=== PATIENT | male | born 1985 | race Caucasian/White ===

== ENCOUNTER 2022-08-19 16:27 | Emergency (ER) | payer BC, MEDICAID, SELFPAY ==
--- NOTE | 2022-08-19 16:34 | ED.EAR ---
HPI - Ear Problem General Chief complaint: Unspecified Stated complaint: Pain in ear and unable to move left side of face Time Seen by Provider: 08/19/22 16:35 Source: patient Mode of arrival: ambulatory Limitations: no limitations History of Present Illness HPI Narrative: Joe is a 37-year-old male patient presenting to the clinic today with complaints of pain in his left ear, headache, left-sided blurry vision, and unable to move the left side of his face. He reports symptoms began this morning when he woke up. States he went to work today and has come here after work. He denies any change in his symptoms since this morning. Related Data Allergies Allergy/AdvReac Type Severity Reaction Status Date / Time No Known Allergies Allergy Verified 08/19/22 16:34 Review of Systems Review of Systems: Pertinent positives per HPI. Patient denies any fever, chills, rash, dizziness, cough, runny nose, sore throat, shortness of breath, chest pain, palpitations, nausea, vomiting, diarrhea, constipation, abdominal pain, or any urinary issues. PMFSH Comments At the time of my signature, I reviewed and agree with the nursing past medical, surgical, social, and family history. There is no relevant family history pertinent to the patient complaint. Exam Narrative: General: Well-developed, well nourished, in no apparent distress Head: Normocephalic, atraumatic, left-sided facial droop, unable to wrinkle the left side of his forehead, smile asymmetric Eyes: Pupils equally round and reactive to light bilaterally, EOM intact, sclera and conjunctive clear, no discharge, lids normal Ears: Right TM intact and clear, left TM intact, congested, with mild redness, ear canals clear, no drainage, grossly hearing normal. Nose: Nares patent, no discharge, no inflammation, no sinus tenderness. Mouth: Oropharynx without lesions or masses, good dentition, MMM. Tongue midline, even rise and fall of uvula Neck: Supple, trachea midline, no enlargement of anterior or posterior cervical nodes, no thyroid masses or goiter palpable. Cardio: Regular rate and rhythm, s1 and s2 normal, no murmur appreciated. Resp: Clear to auscultation bilaterally anteriorly and posteriorly, no rhonchi, rales, wheezing or rubs Musculoskeletal: No deformity, non-tender to palpation, grossly normal range of motion, muscle strength strong and equal, peripheral pulse strong, no edema, no cyanosis, normal gait and station Neuro: Alert and oriented x4 with normal speech, cranial nerves I- and VIII-XII intact, muscle strength 5 out of 5, strong bilateral hand grasps, patellar reflexes 2+ bilaterally, negative Romberg test Course Course Emergency Course: Portions of this record may have been created with voice recognition software. Level of Care: Express Care Visit Vital Signs Vital signs: Vital signs reviewed Medical Decision Making MDM Narrative Medical decision making narrative: At the time of visit patient is resting on the exam table. Patient is having left-sided facial paralysis-unable to wrinkle left side forehead, tightly close left eye, and has asymmetric smile. No other focal deficits at this time. Also reporting headache and blurry vision in the left eye. 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 Recommend transfer to the ED to rule out CVA. Contacted Yesica-physician's insurance assistant at [facility] and report was given for continuity of care. Will send patient to the ED as a passenger of private car Differential Diagnosis Differential Diagnosis: CVA, De La Fuente's palsy Discharge Plan Discharge Clinical Impression: Facial paralysis on left side, Headache, Blurred vision, left eye Patient Disposition: Acute Care Hospital Condition: Stable Follow-up/Referrals: UNKNOWN,DOCTOR [Primary Care Provider] - Time of Disposition: 16:55 Quality NIHSS Nursing Documentation ED NIHSS nursing documentation: reviewed/agree
[2022-08-19 16:36] VITALS: BP 137/92; PULSE 72; RESP 16; TEMP 36.7; O2SAT 99
== END 2022-08-19 16:56 | disposition short-term general hospital (02) ==
PROVIDERS: Emergency Provider Nurse Practitioner Family
DX: R29.810 Facial weakness (principal); R51.9 Headache, unspecified; H53.8 Other visual disturbances
CPT/HCPCS: 99212; G0463

== ENCOUNTER 2022-08-19 17:17 | Emergency (ER) | payer BC, MEDICAID, SELFPAY ==
[2022-08-19] VITALS (12 sets, daily range): BP systolic 122–136; BP diastolic 79–98; PULSE 54–78; RESP 14–18; TEMP 36.6; O2SAT 98–100
--- NOTE | ~2022-08-19 | CT_ITS ---
EXAMINATION: CT brain wo con DATE: 08/19/2022 17:42 INDICATION: L sided facial droop onset 0530 . TECHNIQUE: Computed tomography (CT) of the head was performed without intravenous contrast. The mA wa s adjusted according to patient size. Iterative reconstruction technique was employed. The dose-lengt h product was 605.33 mGy-cm. COMPARISON: None. FINDINGS: No acute intracranial hemorrhage or extra-axial fluid collection. No hydrocephalus, mass, or herniation. No acute ischemic infarct. Unremarkable dural venous sinus attenuation. No acute osseous abnormality. Mild ethmoid mucosal thickening, the remaining aerated spaces are clear. IMPRESSION: No acute intracranial process. Reviewed, dictated and finalized at location K.
--- NOTE | 2022-08-19 18:39 | ED.GENADULT ---
HPI - General Adult General Chief complaint: Unspecified <NORAH Dumont Last Filed: 08/20/22 00:38> Stated complaint: facial droop <NORAH Dumont Last Filed: 08/20/22 00:38> Time Seen by Provider: 08/19/22 18:01 <NORAH Dumont Last Filed: 08/20/22 00:38> Source: patient and old records reviewed <NORAH Dumont Last Filed: 08/20/22 00:38> Mode of arrival: ambulatory <NORAH Dumont Last Filed: 08/20/22 00:38> Limitations: no limitations <NORAH Dumont Last Filed: 08/20/22 00:38> History of Present Illness HPI narrative: Patient is a 37-year-old male who presents to the ED with reports of paralysis to the left side of his face. Patient reports he woke up around 5:30 AM this morning with pain in his left ear, pain in his left eye, unable to close his left eye, unable to move the left side of his face. He denies any vision changes, ear drainage, headache, weakness of arm or leg, numbness of arm or leg, fevers. Patient went to work and then proceeded to go to urgent care where he was then referred here for further evaluation. Patient states he has otherwise been in his normal state of health the last few days. <NOARH Dumont Last Filed: 08/20/22 00:38> Related Data Allergies/adverse reactions: Allergies Allergy/AdvReac Type Severity Reaction Status Date / Time No Known Allergies Allergy Verified 08/19/22 16:34 <NORAH Dumont Last Filed: 08/20/22 00:38> Review of Systems Review of Systems: CONSTITUTIONAL: Denies fever, chills, or sweats. EYES: See HPI. ENT: See HPI. CARDIOVASCULAR: Denies chest pain. RESPIRATORY: Denies dyspnea. GASTROINTESTINAL: Denies abdominal pain, nausea, vomiting, or diarrhea. GENITOURINARY: Denies dysuria or hematuria. MUSCULOSKELETAL: Denies back pain, joint pain, or myalgia. NEUROLOGIC: See HPI. <Savana Klein PA-C - Last Filed: 08/20/22 00:38> All systems reviewed & are unremarkable except as noted in HPI and below <Savana Klein PA-C - Last Filed: 08/20/22 00:38> Exam Narrative: GENERAL: Well appearing, well-nourished, non-toxic, in no acute distress. HEAD: Normocephalic, atraumatic. EYES: PERRL/EOMI, conjunctivae clear bilaterally. No nystagmus. Unable to fully close left eyelid. NOSE: Normal, no drainage. EARS: Left TM slightly erythematous and bulging compared to right. No otorrhea. No significant swelling of EAC. Right TM appears normal. THROAT: Pharynx clear, no exudate. MMs moist. NECK: Supple. No adenopathy, no masses. RESPIRATORY: Airway patent, respirations nonlabored. Clear to auscultation bilaterally, no rales, rhonchi, wheezing. CARDIOVASCULAR: Regular rate and rhythm without murmurs, rubs, or gallops. Radial pulses 2+ and equal bilaterally. MUSCULOSKELETAL: Moves all extremities. Strength/ROM intact without gross deformities or TTP. No edema. No calf tenderness. SKIN: Warm, dry, normal color. No rashes. NEURO: A&O X3. Speech clear. Follows commands. CN II-XII intact aside from isolated facial nerve palsy - asymmetric smile, unable to puff out left cheek, unable to close left eye, unable to raise forehead on left side. Sensation intact. Steady gait. No ataxic movements. Strength 5/5 in upper and lower extremities bilaterally. [id number] and [id number] testing intact bilaterally. No pronator drift. 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 PSYCHIATRIC: Appropriate mood and affect. Normal interaction. <Savana Klein PA-C - Last Filed: 08/20/22 00:38> Course COUNTERINTELLIGENCE ANALYST/PA Physician Supervision This is a was performed by both a physician and an APC. I performed all aspects of the MDM as documented w/ the following additions: 37-year-old male presenting with facial nerve palsy and acute otitis media. Patient was placed on antibiotics for AOM and given appropriate management of his De La Fuente's palsy. Patient
--- NOTE | 2022-08-19 19:16 | PC.NURSE ---
Patient report given to CITLALLI Eaton. All questions answered and care of patient transferred.
[2022-08-19] MEDS: IBUPROFEN 600 MG TABLET PO (20:00)
== END 2022-08-19 20:05 | disposition home or self-care (01) ==
PROVIDERS: Emergency Provider Physician Assistant
DX: G51.0 Bell's palsy (principal); H66.92 Otitis media, unspecified, left ear
CPT/HCPCS: 70450; 99284; A9270

== ENCOUNTER 2023-07-02 21:32 | Emergency (ER) | payer OTHER, SELFPAY ==
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
[2023-07-02 21:38] VITALS: BP 136/100; PULSE 114; RESP 20; TEMP 36.7; O2SAT 96
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
[2023-07-02 22:44] VITALS: BP 109/81; PULSE 91; RESP 16; TEMP 37.2; O2SAT 99
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
[2023-07-02] MEDS: ONDANSETRON INJ 4 MG/2 ML VIAL IV PUSH (23:05)
[2023-07-02] MEDS: MORPHINE SULFATE (*CRX) 4 MG/ML INJ IV PUSH (23:05)
[2023-07-02 23:06] LABS: Basophils Absolute Auto 0.1 K/mm3 (0.0-0.1); Basophils Percent Auto 0.3 % (0.2-1.2); Eosinophils Absolute Auto 0.1 K/mm3 (0-0.3); Eosinophils Percent Auto 0.6 % (0-4.4); Hematocrit 40.8 % (42.0-52.0); Hemoglobin 13.7 g/dL (14.0-18.0); Immature Granulocyte Absolute 0.16 K/mm3 (0.00-0.031); Immature Granulocyte Percent A 0.9 % (0-0.5); Lymphocytes Absolute Auto 1.35 K/mm3 (0.9-3.2); Lymphocytes Percent Auto 7.7 % (18.3-44.2); Mean Corpuscular HGB Conc 33.6 g/dl (32-36); Mean Corpuscular Hemoglobin 31.1 pg (26-34); Mean Corpuscular Volume 92.5 fl (80-100); Mean Platelet Volume 10.3 fl (7.4-10.4); Monocytes Absolute Auto 1.2 K/mm3 (0.1-0.6); Monocytes Percent Auto 6.6 % (2.6-8.5); Neutrophils Absolute Auto 14.8 K/mm3 (1.3-6.7); Neutrophils Percent Auto 83.9 % (45.5-73.1); Platelet Count Result 321 k/mm3 (150-375); Red Blood Count 4.41 M/mm3 (4.6-6.20); White Blood Count 17.6 K/mm3 (4.5-10.0)
[2023-07-02 23:16] LABS: Ethanol < 10 mg/dL (<10); Lactic Acid Reflex 1.1 mmol/L (0.7-2.0)
[2023-07-02 23:20] LABS: Alanine Aminotransferase 24 U/L (6-50); Albumin Level 4.6 g/dL (3.5-5.1); Alkaline Phosphatase 95 U/L (38-126); Anion Gap 7 mmol/L (4-12); Aspartate Amino Transferase 35 U/L (17-59); Bilirubin,Total 0.4 mg/dL (0.2-1.3); Blood Urea Nitrogen 15 mg/dL (9-20); Calcium 9.4 mg/dL (8.4-10.2); Carbon Dioxide 25 mmol/L (22-30); Chloride 106 mmol/L (98-107); Estimated CRCL calculation 120 ml/min; Estimated Glomerular Filt Rate > 60; Glucose 104 mg/dL (65-110); Potassium 3.9 mmol/L (3.4-5.0); Sodium 138 mmol/L (137-145)
[2023-07-03] MEDS: MORPHINE SULFATE (*CRX) 4 MG/ML INJ IV PUSH ×2 (00:56→02:33)
[2023-07-03] MEDS: FAMOTIDINE 20 MG/2 ML VIAL IV PUSH (00:56)
[2023-07-03 01:07] VITALS: BP 120/86; PULSE 81; RESP 15; O2SAT 97
--- NOTE | 2023-07-03 01:29 | PC.NURSE ---
Report called to Matt LENNON @[facility] ED @[id number]
[2023-07-03 02:30] VITALS: BP 126/91; PULSE 71; RESP 13; O2SAT 100
== END 2023-07-03 02:45 | disposition short-term general hospital (02) ==
PROVIDERS: Emergency Provider Emergency Medicine
DX: S20.219A Contusion of unspecified front wall of thorax, initial encounter (principal); S30.1XXA Contusion of abdominal wall, initial encounter; S32.030A Wedge compression fracture of third lumbar vertebra, initial encounter for closed fracture; S32.040A Wedge compression fracture of fourth lumbar vertebra, initial encounter for closed fracture; M47.812 Spondylosis without myelopathy or radiculopathy, cervical region; V49.50XA Passenger injured in collision with unspecified motor vehicles in traffic accident, initial encounter
CPT/HCPCS: 36415; 70450; 71045; 71260; 72125; 74177; 80053; 80307; 83605; 85025; 96374; 96375; 96376; 99285; J2270; J2405; Q9967